=== PATIENT | male | born 1990 | race Caucasian/White ===

== ENCOUNTER → 2022-05-12 | Outpatient (CLI) | payer BC, SELFPAY ==
--- NOTE | 2022-05-12 12:58 | STRESSREP_ITS ---
Stress Test Report Date: 05-12-2022 Procedure: Exercise tolerance test Indications: Preemployment physical examination Consent: Per the patient Procedure: The patient exercised on a Tyrel protocol for 14 minutes completing Stage IV and 2 minutes of Stage V achieving a peak heart rate of 173 bpm (92% predicted maximal heart rate) with a peak blood pressure 158/86 mmHg and a peak MET capacity of approximately 17 MET's. The baseline ECG demonstrated sinus bradycardia. The peak exercise ECG demonstrated no obvious ECG changes. There were no cardiac dysrhythmias pretest, during exercise, or recovery. The functional capacity was considered good. The patient had no complaint of chest discomfort during exercise or recovery. The examination was discontinued secondary to dyspnea and leg fatigue. Impression: 1. Technically adequate (percent predicted maximal heart rate greater than 85%) exercise tolerance test 2. Peak exercise ECG with no obvious ECG changes 3. There were no cardiac dysrhythmias during exercise or recovery This note was generated with [employer] software. It may contain incorrect words, spelling, and punctuation that were not noted in checking the note before signing.
== END | disposition home or self-care (01) ==
LOC: CVS 10:47
PROVIDERS: PCP Family Medicine; Referring Provider Emergency Medicine; Visit Provider Emergency Medicine
DX: Z01.818 Encounter for other preprocedural examination (principal)
CPT/HCPCS: 93017